=== PATIENT | female | born 1960 | race Caucasian/White ===

== ENCOUNTER 2020-11-12 13:12 | Emergency (ER) | payer OTHER ==
[2020-11-12] MEDS ORDERED: HYDROCODON-ACE1 EAC4 PO (14:21)
== END 2020-11-12 14:59 | disposition home or self-care (01) ==
LOC: ER1 13:12
DX: S52.502A Unspecified fracture of the lower end of left radius, initial encounter for closed fracture (principal); S52.612A Displaced fracture of left ulna styloid process, initial encounter for closed fracture; J45.909 Unspecified asthma, uncomplicated; I10 Essential (primary) hypertension; W01.0XXA Fall on same level from slipping, tripping and stumbling without subsequent striking against object, initial encounter; Y92.009 Unspecified place in unspecified non-institutional (private) residence as the place of occurrence of the external cause
CPT/HCPCS: 29125; 73090; 73100; 99283

== ENCOUNTER 2021-02-17 15:48 | Emergency (ER) | payer OTHER ==
[~2021-02-17 15:48] MED LIST: HYDROCODON-ACE1 EAC4 PO
== END 2021-02-17 22:25 | disposition home or self-care (01) ==
LOC: ER1 15:48
DX: S52.502A Unspecified fracture of the lower end of left radius, initial encounter for closed fracture (principal); I10 Essential (primary) hypertension; Z88.5 Allergy status to narcotic agent; W19.XXXA Unspecified fall, initial encounter; Y92.009 Unspecified place in unspecified non-institutional (private) residence as the place of occurrence of the external cause
CPT/HCPCS: 25605; 73100; 73110; 96374; 99283; J2060; J2704

== ENCOUNTER 2021-06-06 14:51 | Emergency (ER) | payer SELFPAY ==
[~2021-06-06] VITALS: Ht 162.6 cm; Wt 70.8 kg
[2021-06-06 16:17] LABS: HEMOGLOBIN 10.2 gm/dl (12.3-15.3); RED BLOOD COUNT 4.09 M/UL (4.00-5.10)
[2021-06-06 16:38] LABS: WHITE BLOOD COUNT 54.7 K/UL (4.5-11.0)
[2021-06-06 16:42] LABS: BUN/CREATININE RATIO 22 (0-10)
== END 2021-06-07 03:47 | disposition short-term general hospital (02) ==
LOC: ER1 14:51
PROVIDERS: Physician Assistant
DX: A41.9 Sepsis, unspecified organism (principal); R65.21 Severe sepsis with septic shock; J86.9 Pyothorax without fistula; C50.919 Malignant neoplasm of unspecified site of unspecified female breast; J96.91 Respiratory failure, unspecified with hypoxia; Z20.822 Contact with and (suspected) exposure to COVID-19
CPT/HCPCS: 36600; 71111; 80053; 82550; 82553; 82803; 83605; 83874; 84484; 85025; 87040; 93005; 96365; 96366; 96367; 99284; J1450; J2543; J3370; J7070; Q9967; U0002